=== PATIENT | female | born 1945 | race Caucasian/White ===

== ENCOUNTER 2020-05-05 10:30 | Emergency (ER) | payer MEDICARE, MEDICAID ==
[~2020-05-05] VITALS: Ht 165.1 cm; Wt 46.4 kg
[~2020-05-05 10:30] MED LIST: CETI-90 PO; CHOL10006 PO; CRAN400C PO; DENO60DI SUBCUT; DOCU100C40 PO; ESCI10TA PO; FERR-119 PO; MELA1TAB9 PO; MYL80T PO; OLAN10TA3 PO; OMEP40CA13 PO; OSC500T PO; RISP1TAB13 PO; VIT1CAPS27 PO
[2020-05-05] MEDS ORDERED: normal saline 1000ml 1,000 ML IV ONE (10:55)
[2020-05-05 12:36] LABS: CLARITY,URINE SLIGHTLY CLOUDY (Clear); COLOR,URINE YELLOW (Yellow); GLUCOSE, URINE NEGATIVE (Neg); KETONES,URINE NEGATIVE (Neg); LEUKOCYTE ESTERASE ,URINE SMALL (Neg); NITRITES, URINE POSITIVE (Neg); OCCULT BLOOD,URINE NEGATIVE (Neg); PROTEIN,URINE NEGATIVE (Neg); UROBILINOGEN,URINE 0.2 E.U/dL (0.2-1.0)
[2020-05-05 12:44] LABS: UA COLLECTION TYPE STRAIGHT CATH
[2020-05-05 12:47] LABS: MUCUS STRANDS FEW /LPF (Neg); SQUAMOUS EPITHELIAL CELL,UR FEW /LPF (FEW)
[2020-05-05 12:50] LABS: TRANSITIONAL EPI CELLS,URINE FEW /HPF
[2020-05-05 12:51] LABS: BACTERIA,URINE 3+ /HPF (Neg)
[2020-05-05 13:06] LABS: BASOPHILS % (AUTO) 0.6 % (0-1); EOSINOPHILS # (AUTO) 0.1 X10'3 (0-0.9); EOSINOPHILS % (AUTO) 1.4 % (0-6); HEMATOCRIT 37.4 % (35.0-45.0); HEMOGLOBIN 12.3 g/dl (12.0-16.0); LYMPHOCYTES % (AUTO) 23.1 % (21-51); MEAN CORPUSCULAR HEMOGLOBIN 29.4 PG (27.0-31.0); MEAN CORPUSCULAR VOLUME 89.2 FL (78-98); MEAN PLATELET VOLUME 8.6 FL (7.4-10.4); MONOCYTES # (AUTO) 0.6 X10'3 (0-0.9); NEUTROPHILS # (AUTO) 2.5 X10'3 (1.8-7.7); NEUTROPHILS % (AUTO) 59.9 % (42-75); PLATELET COUNT 154 X10'3 (140-440); RED BLOOD COUNT 4.19 X10'6 (4.20-5.60); RED CELL DISTRIBUTION WIDTH 13.7 % (11.5-14.5); WHITE BLOOD COUNT 4.2 X10'3 (4.5-11.0)
[2020-05-05 13:22] LABS: ALANINE AMINOTRANSFERASE 18 U/L (12-78); ALBUMIN 3.4 G/DL (3.4-5.0); ALKALINE PHOSPHATASE 66 IU/L (46-116); ANION GAP 4 (8-16); ASPARTATE AMINO TRANSFERASE 17 U/L (10-37); BILIRUBIN,TOTAL 0.1 MG/DL (0.1-1.0); BLOOD UREA NITROGEN 17 MG/DL (7-18); BUN/CREATININE RATIO 30.4 (6.6-38.0); CALCIUM 9.9 MG/DL (8.5-10.1); CHLORIDE 108 MMOL/L (99-107); CREATININE 0.56 MG/DL (0.40-0.90); GLUCOSE 86 MG/DL (70-104); MAGNESIUM 1.9 MG/DL (1.5-2.4); POTASSIUM 3.8 MMOL/L (3.5-5.1); SODIUM 143 MMOL/L (135-145); TOTAL CARBON DIOXIDE 30.8 MMOL/L (24-32); TOTAL PROTEIN 6.9 G/DL (6.4-8.2); eGFR > 90 ML/MIN
[2020-05-05] MEDS ORDERED: CEPH250T PO (13:38)
[2020-05-05] MEDS ORDERED: CefTRIAXone/D5W-Rocephin 1gm 50 ML IV ONE (13:40)
[2020-05-05 14:14] VITALS: BP 116/93
== END 2020-05-05 17:05 | disposition home or self-care (01) ==
LOC: ER 10:31
DX: U07.1 COVID-19 (principal); N39.0 Urinary tract infection, site not specified; I10 Essential (primary) hypertension; Z87.01 Personal history of pneumonia (recurrent); Z87.440 Personal history of urinary (tract) infections; Z79.2 Long term (current) use of antibiotics; Z79.899 Other long term (current) drug therapy
CPT/HCPCS: 36415; 71045; 80053; 81001; 83605; 83735; 84145; 85025; 87040; 87088; 93005; 96365; 96366; 99285; J0696; J7030; 87077; 87186

== ENCOUNTER 2021-04-28 16:47 | Emergency (ER) | payer MEDICARE, MEDICAID ==
[~2021-04-28] VITALS: Ht 157.5 cm; Wt 59.1 kg
[~2021-04-28 16:47] MED LIST changes: +MELA1TAB52 PO; -MELA1TAB9 PO; -MYL80T PO; -OMEP40CA13 PO; +OMEP40CA21 PO; +SIME80TA15 PO
[2021-04-28 16:54] VITALS: BP 132/92
[2021-04-28] MEDS ORDERED: TETanus/Pertussis (Acell)/Diphther VAC/PF (Tdap-Adult) 0.5ml syringe IMVAC ONE (19:55)
== END 2021-04-28 20:45 | disposition home or self-care (01) ==
LOC: ER 16:47
DX: S01.21XA Laceration without foreign body of nose, initial encounter (principal); I10 Essential (primary) hypertension; Z79.899 Other long term (current) drug therapy; W18.30XA Fall on same level, unspecified, initial encounter; Y93.89 Activity, other specified; Y92.89 Other specified places as the place of occurrence of the external cause; Y99.8 Other external cause status
CPT/HCPCS: 12011; 70450; 70486; 72125; 99285

== ENCOUNTER 2021-10-06 12:21 | Emergency (ER) | payer MEDICARE, MEDICAID ==
[~2021-10-06] VITALS: Ht 152.4 cm; Wt 54.5 kg
[2021-10-06 12:35] VITALS: BP 131/79
--- NOTE | 2021-10-06 13:47 | NUR ---
PATIENT WAS SEEN, ASSESSED, AND DISCHARGED PER PROVIDER PRIOR TO NURSING ASSESSMENT.
== END 2021-10-06 13:46 | disposition home or self-care (01) ==
LOC: ER 12:22
DX: S05.12XA Contusion of eyeball and orbital tissues, left eye, initial encounter (principal); S05.11XA Contusion of eyeball and orbital tissues, right eye, initial encounter; S00.33XA Contusion of nose, initial encounter; I10 Essential (primary) hypertension; Z79.899 Other long term (current) drug therapy; X58.XXXA Exposure to other specified factors, initial encounter; Y93.89 Activity, other specified; Y92.89 Other specified places as the place of occurrence of the external cause; Y99.8 Other external cause status
CPT/HCPCS: 70140; 99283

== ENCOUNTER 2022-01-15 10:40 | Emergency (ER) | payer MEDICARE, MEDICAID ==
[~2022-01-15] VITALS: Ht 157.5 cm; Wt 46.6 kg
[2022-01-15 13:11] LABS: BASOPHILS # (AUTO) 0.1 X10'3 (0-0.2); EOSINOPHILS # (AUTO) 0.1 X10'3 (0-0.9); EOSINOPHILS % (AUTO) 1.7 % (0-6); HEMOGLOBIN 12.7 g/dl (12.0-16.0); LYMPHOCYTES # (AUTO) 1.2 X10'3 (1.1-4.8); LYMPHOCYTES % (AUTO) 20.2 % (21-51); MEAN CORPUSCULAR HEMOGLOBIN 29.3 PG (27.0-31.0); MEAN CORPUSCULAR HGB CONC 32.5 g/dL (33.0-36.5); MEAN CORPUSCULAR VOLUME 90.1 FL (78-98); MEAN PLATELET VOLUME 8.6 FL (7.4-10.4); MONOCYTES # (AUTO) 0.6 X10'3 (0-0.9); MONOCYTES % (AUTO) 9.8 % (2-12); NEUTROPHILS % (AUTO) 67.3 % (42-75); PLATELET COUNT 222 X10'3 (140-440); RED BLOOD COUNT 4.32 X10'6 (4.20-5.60); RED CELL DISTRIBUTION WIDTH 14.7 % (11.5-14.5)
[2022-01-15 13:29] LABS: ALANINE AMINOTRANSFERASE 19 U/L (12-78); ALBUMIN 3.6 G/DL (3.4-5.0); ALKALINE PHOSPHATASE 61 IU/L (46-116); ANION GAP 10 (8-16); ASPARTATE AMINO TRANSFERASE 21 U/L (10-37); BILIRUBIN,TOTAL 0.3 MG/DL (0.1-1.0); BLOOD UREA NITROGEN 13 MG/DL (7-18); BUN/CREATININE RATIO 24.5 (6.6-38.0); CALCIUM 9.9 MG/DL (8.5-10.1); CHLORIDE 107 MMOL/L (99-107); CREATININE 0.53 MG/DL (0.40-0.90); GLUCOSE 84 MG/DL (70-104); POTASSIUM 3.5 MMOL/L (3.5-5.1); SODIUM 141 MMOL/L (135-145); TOTAL CARBON DIOXIDE 23.7 MMOL/L (24-32); TOTAL PROTEIN 7.2 G/DL (6.4-8.2); eGFR > 90 ML/MIN
[2022-01-15 14:03] LABS: CLARITY,URINE SLIGHTLY CLOUDY (Clear); COLOR,URINE YELLOW (Yellow); GLUCOSE, URINE NEGATIVE (Neg); KETONES,URINE NEGATIVE (Neg); LEUKOCYTE ESTERASE ,URINE LARGE (Neg); NITRITES, URINE POSITIVE (Neg); OCCULT BLOOD,URINE NEGATIVE (Neg); PROTEIN,URINE NEGATIVE (Neg); UROBILINOGEN,URINE 0.2 E.U/dL (0.2-1.0)
[2022-01-15 14:06] LABS: UA COLLECTION TYPE STRAIGHT CATH
[2022-01-15] MEDS ORDERED: cephalexin 250mg capsule PO ONE (14:20)
[2022-01-15 14:43] LABS: BACTERIA,URINE 4+ /HPF (Neg); RBC,URINE NONE SEEN /HPF (0-2); WBC,URINE 50-100 /HPF (0-4)
[2022-01-15] MEDS ORDERED: CEPH250T PO (14:43)
[2022-01-15 14:44] LABS: SQUAMOUS EPITHELIAL CELL,UR FEW /LPF (FEW); WBC CLUMPS,URINE FEW /HPF (NEGATIVE)
[2022-01-15 15:00] VITALS: BP 130/82
== END 2022-01-15 15:15 | disposition home or self-care (01) ==
LOC: ER 10:41
DX: N39.0 Urinary tract infection, site not specified (principal); R53.1 Weakness; I10 Essential (primary) hypertension; Z87.448 Personal history of other diseases of urinary system; Z79.899 Other long term (current) drug therapy; Z88.1 Allergy status to other antibiotic agents; Z79.84 Long term (current) use of oral hypoglycemic drugs
CPT/HCPCS: 36415; 80053; 81001; 85025; 87077; 87088; 87186; 99284; A4353

== ENCOUNTER 2022-05-02 15:04 | Inpatient (IN) | payer MEDICARE, MEDICAID ==
[~2022-05-02] VITALS: Ht 154.9 cm; Wt 46.8 kg
--- NOTE | 2022-05-02 16:57 | NUR ---
caregiver at bedside.
[2022-05-02] MEDS ORDERED: CefTRIAXone/D5W-Rocephin 1gm 50 ML IV ONE (18:15)
[2022-05-02] MEDS ORDERED: azithromycin/NS 500mg/250ml 250 ML IV ONE (18:15)
[2022-05-02 18:28] LABS: BASOPHILS % (AUTO) 0.1 % (0-1); EOSINOPHILS % (AUTO) 0 % (0-6); HEMATOCRIT 33.2 % (35.0-45.0); HEMOGLOBIN 10.7 g/dl (12.0-16.0); LYMPHOCYTES # (AUTO) 0.5 X10'3 (1.1-4.8); MEAN CORPUSCULAR HEMOGLOBIN 28.6 PG (27.0-31.0); MEAN CORPUSCULAR HGB CONC 32.3 g/dL (33.0-36.5); MEAN CORPUSCULAR VOLUME 88.3 FL (78-98); MEAN PLATELET VOLUME 8.8 FL (7.4-10.4); MONOCYTES # (AUTO) 0.8 X10'3 (0-0.9); MONOCYTES % (AUTO) 4.8 % (2-12); NEUTROPHILS # (AUTO) 15.3 X10'3 (1.8-7.7); NEUTROPHILS % (AUTO) 92.1 % (42-75); PLATELET COUNT 147 X10'3 (140-440); RED BLOOD COUNT 3.76 X10'6 (4.20-5.60); RED CELL DISTRIBUTION WIDTH 14.6 % (11.5-14.5); WHITE BLOOD COUNT 16.6 X10'3 (4.5-11.0)
[2022-05-02 18:44] LABS: ALANINE AMINOTRANSFERASE 21 U/L (12-78); ALBUMIN/GLOBULIN RATIO 0.9 (1.1-1.5); ALKALINE PHOSPHATASE 81 IU/L (46-116); ANION GAP 4 (8-16); ASPARTATE AMINO TRANSFERASE 18 U/L (10-37); BILIRUBIN,TOTAL 0.4 MG/DL (0.1-1.0); BLOOD UREA NITROGEN 23 MG/DL (7-18); BUN/CREATININE RATIO 22.1 (6.6-38.0); CALCIUM 10.2 MG/DL (8.5-10.1); CHLORIDE 109 MMOL/L (99-107); CREATININE 1.04 MG/DL (0.40-0.90); GLUCOSE 113 MG/DL (70-104); POTASSIUM 3.8 MMOL/L (3.5-5.1); SODIUM 146 MMOL/L (135-145); TOTAL PROTEIN 6.5 G/DL (6.4-8.2); eGFR 51 ML/MIN
[2022-05-02 18:47] LABS: MAGNESIUM 2.3 MG/DL (1.5-2.4)
[2022-05-02 18:51] LABS: CLARITY,URINE SLIGHTLY CLOUDY (Clear); COLOR,URINE YELLOW (Yellow); GLUCOSE, URINE NEGATIVE (Neg); KETONES,URINE NEGATIVE (Neg); LEUKOCYTE ESTERASE ,URINE MODERATE (Neg); NITRITES, URINE NEGATIVE (Neg); OCCULT BLOOD,URINE MODERATE (Neg); PH,URINE 6.5 (4.8-8.0); PROTEIN,URINE 30 mg/dl (Neg); UROBILINOGEN,URINE 0.2 E.U/dL (0.2-1.0)
[2022-05-02] MEDS ORDERED: normal saline 1000ml 1,000 ML IV ONE (18:55)
[2022-05-02 18:59] LABS: UA COLLECTION TYPE STRAIGHT CATH
[2022-05-02 19:01] LABS: FINE GRANULAR CAST 0-3 /LPF (NEGATIVE)
[2022-05-02 19:09] LABS: BACTERIA,URINE 3+ /HPF (Neg); MUCUS STRANDS NONE SEEN /LPF (Neg); RBC,URINE 0-2 /HPF (0-2); SQUAMOUS EPITHELIAL CELL,UR NONE SEEN /LPF (FEW); WBC,URINE 50-100 /HPF (0-4)
[2022-05-02] MEDS ORDERED: acetaminophen 325mg tablet PO PRN ×2 (20:05)
[2022-05-02] MEDS ORDERED: ondansetron/PF 4mg/2ml inj IV PRN (20:05)
[2022-05-02] MEDS ORDERED: magnesium Cl slow-release 64mg tablet PO PRN (20:05)
[2022-05-02] MEDS ORDERED: potassium Cl 40MEQ/1/2NS 520ml 520 ML IV PRN (20:05)
[2022-05-02] MEDS: normal saline 1000ml 1,000 ML IV SCH (20:05)
[2022-05-02] MEDS ORDERED: magnesium 4gm in 100ml NS 100 ML IV PRN (20:05)
[2022-05-02] MEDS ORDERED: potassium Cl 20 mEq SR tablet PO PRN (20:05)
[2022-05-02] MEDS ORDERED: temazepam 15mg capsule PO PRN (21:00)
--- NOTE | 2022-05-02 21:39 | NUR ---
Pt transfered to Bed 12 from fast track
[2022-05-02] MEDS ORDERED: CARB15DR91 LEFT EAR (22:15)
--- NOTE | 2022-05-02 22:34 | NUR ---
Brought in by caregiver for temp 103. Pt is very thin and cachectic in appearance with sunken eyes. Skin is warm to touch and dry with dry oral mucosa. Caregiver at bedside reports pt having a decreased appetite and min po intake over last week. Inc of urine and bowel. Bilat extremity contractions. Non-verbal. GCS of 10-11, unable to folllow comands, inappropriate words to non-verbal. POLST at bedside shows DNR with selective measures.
[2022-05-02] MEDS ORDERED: OMEP20CA16 PO (23:13)
[2022-05-02] MEDS ORDERED: OLAN10TA73 PO (23:13)
[2022-05-02] MEDS ORDERED: POTA8TAB69 PO (23:13)
[2022-05-02] MEDS ORDERED: LISI10TA27 PO (23:13)
[2022-05-02] MEDS ORDERED: RISP1TAB98 PO (23:13)
--- NOTE | 2022-05-02 23:41 | NUR ---
REPORT GIVEN TO SURGICAL FLOOR, SPOKE WITH CONI GAYLE. CAREGIVER AT BEDSIDE IS AWARE OF ADMISSION, ROOM NUMBER AND FLOOR
[2022-05-02 23:55] VITALS: BP 158/76
--- NOTE | 2022-05-02 23:55 | NUR ---
PATIENT ADMITTED TO ROOM 349A FROM ER FOR SEPSIS, PNA AND UTI. PLACED COMFORTABLE IN BED. VITAL SIGNS TAKEN AND RECORDED.
[2022-05-03] MEDS: normal saline 1000ml 1,000 ML IV SCH ×3 (00:32→22:21)
[2022-05-03] MEDS ORDERED: RISP1TAB13 PO (00:58)
[2022-05-03] MEDS ORDERED: LACT1CAP26 PO (01:01)
[2022-05-03] MEDS ORDERED: NEOM1OIN8 TOP (01:05)
[2022-05-03] MEDS ORDERED: ASCO-134 PO (01:07)
[2022-05-03] MEDS ORDERED: CHOL10006 PO (01:13)
[2022-05-03] MEDS ORDERED: MINE120C5 TOP (01:18)
[2022-05-03] MEDS ORDERED: BISA10SU60 RC (01:52)
[2022-05-03] MEDS ORDERED: GUAI100L97 PO (01:54)
[2022-05-03] MEDS ORDERED: MAGN400O6 PO (01:56)
[2022-05-03] MEDS ORDERED: POLY17PO10 PO (02:01)
[2022-05-03] MEDS ORDERED: MENT3.5O TP (02:02)
[2022-05-03] MEDS ORDERED: polyethylene glycol 3350 17gm powd pack PO PRN (03:45)
[2022-05-03 06:00] VITALS: BP 163/81
--- NOTE | 2022-05-03 06:11 | NUR ---
Problems reprioritized. Patient report given, questions answered & plan of care reviewed with ALEIDA GAYLE.
[2022-05-03 06:41] LABS: BASOPHILS % (AUTO) 0.1 % (0-1); EOSINOPHILS % (AUTO) 0.1 % (0-6); HEMATOCRIT 32.5 % (35.0-45.0); HEMOGLOBIN 10.7 g/dl (12.0-16.0); LYMPHOCYTES # (AUTO) 0.5 X10'3 (1.1-4.8); LYMPHOCYTES % (AUTO) 3.5 % (21-51); MEAN CORPUSCULAR HEMOGLOBIN 28.9 PG (27.0-31.0); MEAN CORPUSCULAR HGB CONC 32.8 g/dL (33.0-36.5); MEAN CORPUSCULAR VOLUME 88.2 FL (78-98); MEAN PLATELET VOLUME 9.5 FL (7.4-10.4); MONOCYTES # (AUTO) 0.7 X10'3 (0-0.9); MONOCYTES % (AUTO) 4.8 % (2-12); NEUTROPHILS # (AUTO) 13.3 X10'3 (1.8-7.7); NEUTROPHILS % (AUTO) 91.5 % (42-75); PLATELET COUNT 127 X10'3 (140-440); RED BLOOD COUNT 3.68 X10'6 (4.20-5.60); RED CELL DISTRIBUTION WIDTH 14.7 % (11.5-14.5); WHITE BLOOD COUNT 14.5 X10'3 (4.5-11.0)
[2022-05-03 06:51] LABS: ALANINE AMINOTRANSFERASE 14 U/L (12-78); ALBUMIN 2.5 G/DL (3.4-5.0); ALBUMIN/GLOBULIN RATIO 0.8 (1.1-1.5); ALKALINE PHOSPHATASE 105 IU/L (46-116); ANION GAP 9 (8-16); ASPARTATE AMINO TRANSFERASE 17 U/L (10-37); BILIRUBIN,TOTAL 0.3 MG/DL (0.1-1.0); BLOOD UREA NITROGEN 19 MG/DL (7-18); BUN/CREATININE RATIO 25.3 (6.6-38.0); CALCIUM 9.2 MG/DL (8.5-10.1); CHLORIDE 114 MMOL/L (99-107); CREATININE 0.75 MG/DL (0.40-0.90); GLUCOSE 95 MG/DL (70-104); POTASSIUM 3.3 MMOL/L (3.5-5.1); SODIUM 149 MMOL/L (135-145); TOTAL CARBON DIOXIDE 26.3 MMOL/L (24-32); TOTAL PROTEIN 5.8 G/DL (6.4-8.2); eGFR 75 ML/MIN
[2022-05-03] MEDS: pantoprazole 40mg Tablet.DR PO SCH (08:00)
[2022-05-03] MEDS: heparin, porcine 5000 units/ml vial SQ SCH ×2 (08:00→22:16)
[2022-05-03] MEDS: lisinopril 10 MG tablet PO SCH (08:00)
[2022-05-03] MEDS: ESCITALOPRAM OXALATE 5 MG TABLET PO SCH (08:00)
[2022-05-03] MEDS: risperiDONE 0.5mg tablet PO SCH (08:00)
[2022-05-03] MEDS: olanzapine 10mg tablet PO SCH (08:00)
[2022-05-03] MEDS: ferrous sulfate 325mg tablet PO SCH (08:00)
[2022-05-03] MEDS: CefTRIAXone 2gm/D5W 50ml BAG 50 ML IV SCH (09:34)
[2022-05-03 10:00] VITALS: BP 167/60
--- NOTE | 2022-05-03 10:06 | NUR ---
Student Medication Administration: For this medication-pass time frame, all medication were reviewed, dispensed, administered and documented per hospital policy by Juan Patricio, Student RN, with James Klein, Instructor RN.
[2022-05-03] MEDS: azithromycin/NS 500mg/250ml 250 ML IV SCH (10:22)
--- NOTE | 2022-05-03 10:25 | NUR ---
Noted pt low BMI for age [age] though current chair scaled wt consistent w/ prior scaled wt hx recent January 17' ER visit and pt appears WD/WN per EMR. Likely maintains stable underweight status at baseline. Addendum: 05/03/22 at [address] Amended: Links added.
[2022-05-03] MEDS: K and/or MAG REPLACEMENT MC SCH ×2 (15:55→20:00)
--- NOTE | 2022-05-03 16:01 | NUR ---
Student Medication Administration: For this medication-pass time frame, all medication were reviewed, dispensed, administered and documented per hospital policy by Juan Patricio Student RN with IRWIN Avila.
[2022-05-03 18:00] VITALS: BP 151/70
--- NOTE | 2022-05-03 18:45 | NUR ---
Patient in room [facility]. I have received report from ALEIDA GAYLE and had the opportunity to ask questions and assume patient care.
--- NOTE | 2022-05-03 19:30 | NUR ---
Student documentation: I have reviewed and agree with all interventions, assessments performed and documented by Cesar Patricio student RN, Carolina Klein RN instructor.
[2022-05-03 22:00] VITALS: BP 130/57
[2022-05-03] MEDS: risperiDONE 2mg tablet PO SCH (22:16)
[2022-05-03] MEDS ORDERED: neomycin sulfate/bacitracin zinc/polymixin B UD packet TP PRN (22:35)
[2022-05-03] MEDS ORDERED: bisacodyl 10mg suppository rectal RC PRN (22:35)
[2022-05-03] MEDS ORDERED: mineral oil/petrolatum, white cream 113gm jar TP PRN (22:35)
[2022-05-04] MEDS: potassium CL 10mEq/100ml bag 100 ML IV PRN ×2 (01:09→02:50)
[2022-05-04] MEDS: dextrose 5%-water 1,000 ML IV SCH ×3 (01:45→17:13)
[2022-05-04 06:00] VITALS: BP 176/70
--- NOTE | 2022-05-04 06:26 | NUR ---
Problems reprioritized. Patient report given, questions answered & plan of care reviewed with ALEIDA GAYLE.
[2022-05-04 06:32] LABS: BASOPHILS % (AUTO) 0.3 % (0-1); EOSINOPHILS % (AUTO) 0.1 % (0-6); HEMATOCRIT 29.5 % (35.0-45.0); HEMOGLOBIN 9.8 g/dl (12.0-16.0); LYMPHOCYTES # (AUTO) 0.6 X10'3 (1.1-4.8); LYMPHOCYTES % (AUTO) 5.6 % (21-51); MEAN CORPUSCULAR HEMOGLOBIN 29.1 PG (27.0-31.0); MEAN CORPUSCULAR HGB CONC 33.1 g/dL (33.0-36.5); MEAN CORPUSCULAR VOLUME 87.9 FL (78-98); MEAN PLATELET VOLUME 9.7 FL (7.4-10.4); MONOCYTES # (AUTO) 0.6 X10'3 (0-0.9); MONOCYTES % (AUTO) 5.7 % (2-12); NEUTROPHILS # (AUTO) 9.7 X10'3 (1.8-7.7); NEUTROPHILS % (AUTO) 88.3 % (42-75); PLATELET COUNT 126 X10'3 (140-440); RED BLOOD COUNT 3.36 X10'6 (4.20-5.60); RED CELL DISTRIBUTION WIDTH 14.2 % (11.5-14.5)
[2022-05-04 07:11] LABS: ALANINE AMINOTRANSFERASE 12 U/L (12-78); ALBUMIN 2.2 G/DL (3.4-5.0); ALBUMIN/GLOBULIN RATIO 0.6 (1.1-1.5); ALKALINE PHOSPHATASE 73 IU/L (46-116); ANION GAP 8 (8-16); ASPARTATE AMINO TRANSFERASE 10 U/L (10-37); BILIRUBIN,TOTAL 0.3 MG/DL (0.1-1.0); BLOOD UREA NITROGEN 21 MG/DL (7-18); BUN/CREATININE RATIO 32.3 (6.6-38.0); CALCIUM 8.7 MG/DL (8.5-10.1); CHLORIDE 118 MMOL/L (99-107); CREATININE 0.65 MG/DL (0.40-0.90); GLUCOSE 145 MG/DL (70-104); MAGNESIUM 2.1 MG/DL (1.5-2.4); POTASSIUM 3.8 MMOL/L (3.5-5.1); SODIUM 151 MMOL/L (135-145); TOTAL CARBON DIOXIDE 24.9 MMOL/L (24-32); TOTAL PROTEIN 5.6 G/DL (6.4-8.2); eGFR 88 ML/MIN
[2022-05-04 07:15] LABS: PHOSPHORUS 1.1 MG/DL (2.3-4.5)
--- NOTE | 2022-05-04 07:20 | NUR ---
promotional table spacer Page Accepted promotional table spacer Message: ROSE LARSON RM 349A CRITICAL PHOS 1.1 NO PHOS REPLACEMENT ORDERS THANK YOU, ALEIDA GAYLE Custom Responses: promotional table spacer Transaction number: [id number]
[2022-05-04] MEDS ORDERED: CRANBERRY 400 MG PO SCH (08:00)
[2022-05-04] MEDS: K and/or MAG REPLACEMENT MC SCH ×2 (08:00→20:00)
[2022-05-04] MEDS: docusate sod 100mg capsule PO SCH ×2 (08:00→21:55)
[2022-05-04] MEDS: cholecalciferol (vitamin D3) 1,000 unit (25mcg) tablet PO SCH (09:08)
[2022-05-04] MEDS: cetirizine 10mg tablet PO SCH (09:08)
[2022-05-04] MEDS: ascorbic acid 500mg tablet PO SCH ×2 (09:08→21:55)
[2022-05-04] MEDS: beta-carotene(A) w/C & E + minerals tab PO SCH ×2 (09:08→21:55)
[2022-05-04] MEDS: simethicone 80mg chew tab PO SCH (09:08)
[2022-05-04] MEDS: lisinopril 10 MG tablet PO SCH (09:08)
[2022-05-04] MEDS: olanzapine 10mg tablet PO SCH (09:08)
[2022-05-04] MEDS: ESCITALOPRAM OXALATE 5 MG TABLET PO SCH (09:08)
[2022-05-04] MEDS: CefTRIAXone 2gm/D5W 50ml BAG 50 ML IV SCH (09:09)
[2022-05-04] MEDS: risperiDONE 0.5mg tablet PO SCH (09:09)
[2022-05-04] MEDS: ferrous sulfate 325mg tablet PO SCH (09:09)
[2022-05-04] MEDS: heparin, porcine 5000 units/ml vial SQ SCH ×2 (09:09→21:54)
[2022-05-04] MEDS: pantoprazole 40mg Tablet.DR PO SCH (09:09)
[2022-05-04] MEDS: azithromycin/NS 500mg/250ml 250 ML IV SCH (09:30)
[2022-05-04 10:00] VITALS: BP 159/91
[2022-05-04] MEDS ORDERED: potassium phosphate inj 30 MMOL in normal saline 250ml IV soln 250 ML IV ONE (10:50)
[2022-05-04] MEDS: calcium carbonate 500mg tablet PO SCH (17:12)
[2022-05-04 18:00] VITALS: BP 165/82
[2022-05-04] MEDS ORDERED: Melatonin 3mg tablet PO SCH (21:00)
[2022-05-04] MEDS: risperiDONE 2mg tablet PO SCH (21:55)
[2022-05-04] MEDS: carbamide peroxide 15ml bottle LEFT EAR SCH (21:56)
[2022-05-04 22:00] VITALS: BP 192/100
[2022-05-04] MEDS ORDERED: MELATONIN 1 MG TABLET PO SCH (22:03)
[2022-05-04 23:43] VITALS: BP 178/87
--- NOTE | 2022-05-05 05:40 | NUR ---
Pt having difficulty drinking being spoon fed thickened liquids. Requested a sippy cup from dietary.
[2022-05-05 06:00] VITALS: BP 184/86
--- NOTE | 2022-05-05 06:25 | NUR ---
Problems reprioritized. Patient report given, questions answered & plan of care reviewed with IRWIN Chavarria.
[2022-05-05 06:41] LABS: BASOPHILS # (AUTO) 0.1 X10'3 (0-0.2); BASOPHILS % (AUTO) 0.7 % (0-1); EOSINOPHILS # (AUTO) 0.1 X10'3 (0-0.9); EOSINOPHILS % (AUTO) 0.9 % (0-6); HEMATOCRIT 29.8 % (35.0-45.0); LYMPHOCYTES % (AUTO) 12.3 % (21-51); MEAN CORPUSCULAR HEMOGLOBIN 29.3 PG (27.0-31.0); MEAN CORPUSCULAR HGB CONC 33.7 g/dL (33.0-36.5); MEAN PLATELET VOLUME 9.1 FL (7.4-10.4); MONOCYTES # (AUTO) 0.8 X10'3 (0-0.9); MONOCYTES % (AUTO) 9.9 % (2-12); NEUTROPHILS # (AUTO) 6.3 X10'3 (1.8-7.7); NEUTROPHILS % (AUTO) 76.2 % (42-75); PLATELET COUNT 125 X10'3 (140-440); RED BLOOD COUNT 3.43 X10'6 (4.20-5.60); RED CELL DISTRIBUTION WIDTH 14.6 % (11.5-14.5); WHITE BLOOD COUNT 8.3 X10'3 (4.5-11.0)
--- NOTE | 2022-05-05 06:55 | NUR ---
Patient in room [facility]. I have received report from Carol and had the opportunity to ask questions and assume patient care.
[2022-05-05 07:06] LABS: ALANINE AMINOTRANSFERASE 15 U/L (12-78); ALBUMIN 2.2 G/DL (3.4-5.0); ALBUMIN/GLOBULIN RATIO 0.7 (1.1-1.5); ALKALINE PHOSPHATASE 73 IU/L (46-116); ANION GAP 5 (8-16); ASPARTATE AMINO TRANSFERASE 11 U/L (10-37); BILIRUBIN,TOTAL 0.3 MG/DL (0.1-1.0); BLOOD UREA NITROGEN 16 MG/DL (7-18); BUN/CREATININE RATIO 24.6 (6.6-38.0); CALCIUM 8.8 MG/DL (8.5-10.1); CHLORIDE 111 MMOL/L (99-107); CREATININE 0.65 MG/DL (0.40-0.90); GLUCOSE 122 MG/DL (70-104); MAGNESIUM 1.8 MG/DL (1.5-2.4); SODIUM 144 MMOL/L (135-145); TOTAL CARBON DIOXIDE 28.3 MMOL/L (24-32); TOTAL PROTEIN 5.5 G/DL (6.4-8.2); eGFR 88 ML/MIN
[2022-05-05 07:09] LABS: PHOSPHORUS 1.2 MG/DL (2.3-4.5); POTASSIUM 2.9 MMOL/L (3.5-5.1)
--- NOTE | 2022-05-05 07:24 | NUR ---
Message: Re: Scott in 349A, potassium 2.9, phosphorus 1.2, potassium protocol in, not phos, please advise Aura [id number]
[2022-05-05] MEDS: potassium Cl 20 mEq SR tablet PO PRN ×2 (07:52→14:36)
[2022-05-05] MEDS: K and/or MAG REPLACEMENT MC SCH ×2 (08:00→20:00)
[2022-05-05] MEDS: ESCITALOPRAM OXALATE 5 MG TABLET PO SCH (08:05)
[2022-05-05] MEDS: ferrous sulfate 325mg tablet PO SCH (08:05)
[2022-05-05] MEDS: CefTRIAXone 2gm/D5W 50ml BAG 50 ML IV SCH (08:05)
[2022-05-05] MEDS: docusate sod 100mg capsule PO SCH ×2 (08:05→21:26)
[2022-05-05] MEDS: pantoprazole 40mg Tablet.DR PO SCH (08:06)
[2022-05-05] MEDS: beta-carotene(A) w/C & E + minerals tab PO SCH ×2 (08:06→21:26)
[2022-05-05] MEDS: cholecalciferol (vitamin D3) 1,000 unit (25mcg) tablet PO SCH (08:06)
[2022-05-05] MEDS: simethicone 80mg chew tab PO SCH (08:06)
[2022-05-05] MEDS: cetirizine 10mg tablet PO SCH (08:06)
[2022-05-05] MEDS: heparin, porcine 5000 units/ml vial SQ SCH ×2 (08:06→21:26)
[2022-05-05] MEDS: risperiDONE 0.5mg tablet PO SCH (08:06)
[2022-05-05] MEDS: olanzapine 10mg tablet PO SCH (08:06)
[2022-05-05] MEDS: ascorbic acid 500mg tablet PO SCH ×2 (08:06→21:26)
[2022-05-05] MEDS: lisinopril 10 MG tablet PO SCH (08:10)
[2022-05-05] MEDS ORDERED: potassium phosphate inj 30 MMOL in normal saline 250ml IV soln 250 ML IV ONE (08:45)
[2022-05-05 10:00] VITALS: BP 118/82
[2022-05-05] MEDS: azithromycin/NS 500mg/250ml 250 ML IV SCH (10:02)
[2022-05-05] MEDS: dextrose 5%-water 1,000 ML IV SCH (16:37)
--- NOTE | 2022-05-05 16:56 | NUR ---
Pt's sister phoned. Called her back and spent time discussing pt. Sister/conservator Kinsey expresses gratitude for the care her sister is receiving.
[2022-05-05] MEDS: calcium carbonate 500mg tablet PO SCH (17:43)
[2022-05-05 18:00] VITALS: BP 165/89
--- NOTE | 2022-05-05 18:35 | NUR ---
Problems reprioritized. Patient report given, questions answered & plan of care reviewed with Carol.
[2022-05-05] MEDS: risperiDONE 2mg tablet PO SCH (21:26)
[2022-05-05] MEDS: carbamide peroxide 15ml bottle LEFT EAR SCH (21:27)
[2022-05-05] MEDS ORDERED: potassium Cl 40MEQ/1/2NS 520ml 520 ML IV PRN (21:35)
[2022-05-05] MEDS ORDERED: potassium Cl 20 mEq SR tablet PO PRN ×2 (21:35)
[2022-05-05 22:00] VITALS: BP 160/102
[2022-05-06] MEDS: dextrose 5%-water 1,000 ML IV SCH (05:04)
[2022-05-06 06:00] VITALS: BP 169/101
--- NOTE | 2022-05-06 06:10 | NUR ---
Problems reprioritized. Patient report given, questions answered & plan of care reviewed with IRWIN Gupta.
--- NOTE | 2022-05-06 06:45 | NUR ---
Patient in room [facility] 349A. I have received report from IRWIN REGAN and had the opportunity to ask questions and assume patient care.
[2022-05-06 06:52] LABS: BASOPHILS % (AUTO) 0.5 % (0-1); EOSINOPHILS # (AUTO) 0.2 X10'3 (0-0.9); EOSINOPHILS % (AUTO) 2.5 % (0-6); HEMATOCRIT 31.1 % (35.0-45.0); HEMOGLOBIN 10.2 g/dl (12.0-16.0); LYMPHOCYTES % (AUTO) 13.9 % (21-51); MEAN CORPUSCULAR HEMOGLOBIN 28.7 PG (27.0-31.0); MEAN CORPUSCULAR HGB CONC 32.6 g/dL (33.0-36.5); MEAN CORPUSCULAR VOLUME 87.9 FL (78-98); MEAN PLATELET VOLUME 9.3 FL (7.4-10.4); MONOCYTES # (AUTO) 0.9 X10'3 (0-0.9); MONOCYTES % (AUTO) 12.3 % (2-12); NEUTROPHILS # (AUTO) 5.2 X10'3 (1.8-7.7); NEUTROPHILS % (AUTO) 70.8 % (42-75); PLATELET COUNT 142 X10'3 (140-440); RED BLOOD COUNT 3.54 X10'6 (4.20-5.60); RED CELL DISTRIBUTION WIDTH 14.2 % (11.5-14.5); WHITE BLOOD COUNT 7.3 X10'3 (4.5-11.0)
[2022-05-06 07:12] LABS: ALANINE AMINOTRANSFERASE 13 U/L (12-78); ALBUMIN 2.1 G/DL (3.4-5.0); ALBUMIN/GLOBULIN RATIO 0.6 (1.1-1.5); ALKALINE PHOSPHATASE 72 IU/L (46-116); ANION GAP 5 (8-16); ASPARTATE AMINO TRANSFERASE 13 U/L (10-37); BILIRUBIN,TOTAL 0.3 MG/DL (0.1-1.0); BLOOD UREA NITROGEN 14 MG/DL (7-18); BUN/CREATININE RATIO 22.2 (6.6-38.0); CALCIUM 9.8 MG/DL (8.5-10.1); CHLORIDE 109 MMOL/L (99-107); CREATININE 0.63 MG/DL (0.40-0.90); GLUCOSE 115 MG/DL (70-104); MAGNESIUM 1.7 MG/DL (1.5-2.4); PHOSPHORUS 2.2 MG/DL (2.3-4.5); POTASSIUM 4.4 MMOL/L (3.5-5.1); SODIUM 142 MMOL/L (135-145); TOTAL CARBON DIOXIDE 27.9 MMOL/L (24-32); TOTAL PROTEIN 5.5 G/DL (6.4-8.2); eGFR > 90 ML/MIN
[2022-05-06] MEDS: heparin, porcine 5000 units/ml vial SQ SCH ×2 (08:00→09:53)
[2022-05-06] MEDS ORDERED: K and/or MAG REPLACEMENT MC SCH (08:00)
[2022-05-06] MEDS ORDERED: potassium phosphate inj 30 MMOL in normal saline 250ml IV soln 250 ML IV ONE (08:55)
--- NOTE | 2022-05-06 09:11 | NUR ---
Initial: Pt admitted w/ sepsis secondary to UTI and PNA per EMR. Currently on Puree/NTL liquid diet as this is what pt is reportedly on at home. Intake 100% of meals w/ feeder, meeting est needs at this time. LBM 05/05. Pt also receiving D5 at 75ml/hr providing an additional 306kcals/day. Will continue to monitor Recs; 1. BSS w/ PROJECTS MANAGER as precaution. Pt has Puree/NTL diet at baseline per report 2. Bowel care per rx 3. Weekly wts Addendum: 05/06/22 at [address] Amended: Links added.
[2022-05-06] MEDS: azithromycin/NS 500mg/250ml 250 ML IV SCH (09:51)
[2022-05-06] MEDS: cetirizine 10mg tablet PO SCH (09:53)
[2022-05-06] MEDS: ascorbic acid 500mg tablet PO SCH (09:53)
[2022-05-06] MEDS: pantoprazole 40mg Tablet.DR PO SCH (09:53)
[2022-05-06] MEDS: simethicone 80mg chew tab PO SCH (09:53)
[2022-05-06] MEDS: cholecalciferol (vitamin D3) 1,000 unit (25mcg) tablet PO SCH (09:54)
[2022-05-06] MEDS: ferrous sulfate 325mg tablet PO SCH (09:54)
[2022-05-06] MEDS: beta-carotene(A) w/C & E + minerals tab PO SCH (09:54)
[2022-05-06] MEDS: olanzapine 10mg tablet PO SCH (09:55)
[2022-05-06] MEDS: risperiDONE 0.5mg tablet PO SCH (09:55)
[2022-05-06] MEDS: docusate sod 100mg capsule PO SCH (09:55)
[2022-05-06] MEDS: ESCITALOPRAM OXALATE 5 MG TABLET PO SCH (09:55)
[2022-05-06 10:00] VITALS: BP 170/74
[2022-05-06 10:07] VITALS: BP_SYST 170
[2022-05-06] MEDS: lisinopril 10 MG tablet PO SCH (10:07)
[2022-05-06] MEDS ORDERED: Neutra Phos packet PO ONE (11:05)
[2022-05-06] MEDS: CefTRIAXone 2gm/D5W 50ml BAG 50 ML IV SCH (11:56)
[2022-05-06] MEDS ORDERED: CEFD300C3 PO (12:39)
[2022-05-06] MEDS ORDERED: NEUPHOSK PO (12:39)
--- NOTE | 2022-05-06 14:02 | NUR ---
PATIENT STABLE AND APPROPRIATE FOR DISCHARGE, IV REMOVED, EDUCATION GIVEN TO CAREGIVER, ALL BELONGINGS SENT WITH PATIENT, PATIENT TAKEN TO LOBBY BY CAREGIVER IN PERSONAL CHAIR TO AWAITING TRANSPORT TO GO BACK HOME
--- NOTE | 2022-05-06 18:56 | NUR ---
Student documentation: I have reviewed and agree with all assessments performed and documented by TRISTAN, STUDENT RN.
[2022-05-07] MEDS ORDERED: azithromycin 250mg tablet PO SCH (08:00)
== END 2022-05-06 14:02 | disposition home health service (06) | DRG 871 ==
LOC: ER 15:06 → ED HOLD 20:09 → EDBEDREQ 23:23 → SUR 3N 23:50
PROVIDERS: ADMIT Internal Medicine; ATTEND Family Medicine
DX: A41.59 Other Gram-negative sepsis (principal); J18.9 Pneumonia, unspecified organism; E87.0 Hyperosmolality and hypernatremia; N39.0 Urinary tract infection, site not specified; E86.0 Dehydration; E83.39 Other disorders of phosphorus metabolism; E87.6 Hypokalemia; I10 Essential (primary) hypertension; Z20.822 Contact with and (suspected) exposure to COVID-19; Z74.01 Bed confinement status; Z87.440 Personal history of urinary (tract) infections; Z99.3 Dependence on wheelchair; Z79.899 Other long term (current) drug therapy
CPT/HCPCS: 36415; 71045; 80053; 81001; 83605; 83735; 84100; 84145; 84484; 85025; 87040; 87077; 87081; 87088; 87186; 87502; 87503; 87635; 92508; 92616; 93005; 97161; 97530; 99285; A4353; C9803; G0378; J0456; J0696; J1644; J3480; J3490; J7030; J7050; J7070

== ENCOUNTER 2022-05-14 10:35 | Emergency (ER) | payer MEDICARE, MEDICAID ==
[~2022-05-14] VITALS: Ht 157.5 cm; Wt 47.7 kg
[~2022-05-14 10:35] MED LIST changes: +ASCO-134 PO; +BISA10SU60 RC; +CARB15DR91 LEFT EAR; +CEFD300C3 PO; +GUAI100L97 PO; +LACT1CAP26 PO; +LISI10TA27 PO; +MAGN400O6 PO; +MENT3.5O TP; +MINE120C5 TOP; +NEOM1OIN8 TOP; +NEUPHOSK PO; -OLAN10TA3 PO; +OLAN10TA73 PO; +OMEP20CA16 PO; -OMEP40CA21 PO; +POLY17PO10 PO; +POTA8TAB69 PO; +RISP1TAB98 PO
[2022-05-14 10:58] VITALS: BP 146/89
[2022-05-14 12:06] LABS: BASOPHILS # (AUTO) 0.1 X10'3 (0-0.2); BASOPHILS % (AUTO) 1.4 % (0-1); EOSINOPHILS # (AUTO) 0.1 X10'3 (0-0.9); EOSINOPHILS % (AUTO) 1.6 % (0-6); HEMATOCRIT 33.3 % (35.0-45.0); HEMOGLOBIN 10.8 g/dl (12.0-16.0); LYMPHOCYTES # (AUTO) 1.1 X10'3 (1.1-4.8); LYMPHOCYTES % (AUTO) 17.5 % (21-51); MEAN CORPUSCULAR HEMOGLOBIN 28.9 PG (27.0-31.0); MEAN CORPUSCULAR HGB CONC 32.3 g/dL (33.0-36.5); MEAN CORPUSCULAR VOLUME 89.5 FL (78-98); MEAN PLATELET VOLUME 7.9 FL (7.4-10.4); MONOCYTES # (AUTO) 0.6 X10'3 (0-0.9); MONOCYTES % (AUTO) 9.1 % (2-12); NEUTROPHILS # (AUTO) 4.5 X10'3 (1.8-7.7); NEUTROPHILS % (AUTO) 70.4 % (42-75); PLATELET COUNT 420 X10'3 (140-440); RED BLOOD COUNT 3.72 X10'6 (4.20-5.60); RED CELL DISTRIBUTION WIDTH 14.8 % (11.5-14.5); WHITE BLOOD COUNT 6.4 X10'3 (4.5-11.0)
[2022-05-14 12:47] LABS: ALANINE AMINOTRANSFERASE 23 U/L (12-78); ALBUMIN 3.1 G/DL (3.4-5.0); ALBUMIN/GLOBULIN RATIO 0.8 (1.1-1.5); ALKALINE PHOSPHATASE 69 IU/L (46-116); ANION GAP 11 (8-16); ASPARTATE AMINO TRANSFERASE 16 U/L (10-37); BILIRUBIN,TOTAL 0.4 MG/DL (0.1-1.0); BLOOD UREA NITROGEN 17 MG/DL (7-18); BUN/CREATININE RATIO 16.5 (6.6-38.0); CHLORIDE 111 MMOL/L (99-107); CREATININE 1.03 MG/DL (0.40-0.90); GLUCOSE 89 MG/DL (70-104); POTASSIUM 3.5 MMOL/L (3.5-5.1); SODIUM 152 MMOL/L (135-145); TOTAL CARBON DIOXIDE 30.3 MMOL/L (24-32); eGFR 52 ML/MIN
== END 2022-05-14 13:02 | disposition home or self-care (01) ==
LOC: ER 10:35
DX: R53.1 Weakness (principal); R62.50 Unspecified lack of expected normal physiological development in childhood; I10 Essential (primary) hypertension
CPT/HCPCS: 36415; 71045; 80053; 85025; 99284